=== PATIENT | male | born 1965 | race Hispanic/Latino ===

== ENCOUNTER 2019-12-26 00:36 | Emergency (ER) | payer SELFPAY ==
[~2019-12-26 00:36] MED LIST: METFOR; SULF1TAB42 PO
[2019-12-26] MEDS ORDERED: MECLIZINE HCL 25 MG TABLET ONE (01:16)
[2019-12-26] MEDS ORDERED: FUROSEMIDE 10 MG/ML 4ML VIAL ONE (01:17)
[2019-12-26 01:21] LABS: BASOPHILS % (AUTO) 0.8 % (0.0-5.0); EOSINOPHILS % (AUTO) 3.6 % (0.0-8.0); HEMATOCRIT 39.6 % (42-54); LYMPHOCYTES % (AUTO) 12.6 % (21.0-51.0); MEAN CORPUSCULAR HEMOGLOBIN 30.5 pg (27.0-33.0); MEAN CORPUSCULAR HGB CONC 33.6 g/dL (32.0-36.0); MEAN CORPUSCULAR VOLUME 90.8 fL (79-99); MONOCYTES % (AUTO) 4.9 % (3.0-13.0); NEUTROPHILS % (AUTO) 77.8 % (40.0-77.0); PLATELET COUNT (AUTO) 218 K/uL (130-400); RED BLOOD CELL COUNT(AUTO) 4.36 MIL/uL (4.50-6.20); RED CELL DISTRIBUTION WIDTH 12.5 % (11.0-15.5); WHITE BLOOD COUNT (AUTO) 11.5 K/uL (4.8-10.8)
[2019-12-26 01:30] LABS: CREATININE 1.9 mg/dL (0.5-1.5); POTASSIUM 4.8 mmol/L (3.5-5.1)
[2019-12-26 01:34] LABS: ALBUMIN 3.6 g/dL (3.5-5.0); TOTAL PROTEIN, SERUM 7.3 g/dL (6.0-8.3)
[2019-12-26 01:37] LABS: INR 0.97 (0.85-1.15); PARTIAL THROMBOPLASTIN TIME 25.2 SEC (26.3-35.5); PROTHROMBIN TIME 10.5 SEC (9.6-11.6)
[2019-12-26 01:44] LABS: B-TYPE NATRIURETIC PEPTIDE 1660 pg/mL (0-100)
[2019-12-26 02:21] LABS: APPEARANCE,URINE Clear (CLEAR); BILIRUBIN,URINE Negative (NEGATIVE); COLOR,URINE Yellow (YELLOW); GLUCOSE, URINE (UA) 500 mg/dL (NEGATIVE); KETONES,URINE Negative (NEGATIVE); LEUKOCYTE ESTERASE ,URINE Negative (NEGATIVE); NITRATE,URINE Negative (NEGATIVE); OCCULT BLOOD,URINE Small (NEGATIVE); PROTEIN,URINE POS 2+ mg/dL (NEGATIVE)
[2019-12-26 02:29] LABS: BACTERIA,URINE None Seen /HPF (None Seen); RBC,URINE 0-1 /HPF (0-1); WBC,URINE None Seen /HPF (0-1)
== END 2019-12-26 03:43 | disposition home or self-care (01) ==
LOC: EDH 00:36
DX: H81.10 Benign paroxysmal vertigo, unspecified ear (principal); N28.9 Disorder of kidney and ureter, unspecified; R60.0 Localized edema; R80.9 Proteinuria, unspecified; I10 Essential (primary) hypertension; E11.9 Type 2 diabetes mellitus without complications
CPT/HCPCS: 36415; 71045; 80053; 81001; 82550; 83880; 84484; 85025; 85610; 85730; 93005; 96374; 99285; J1940

== ENCOUNTER → 2023-11-25 | Outpatient (CLI) | payer BC ==
[2023-11-25 16:40] LABS: CREATININE 4.4 mg/dL (0.5-1.3); POTASSIUM 4.2 mmol/L (3.5-5.1)
[2023-11-25 16:44] LABS: HEMOGLOBIN A1C 7.7 % (4.0-6.0)
== END | disposition home or self-care (01) ==
LOC: LAB 14:16
PROVIDERS: ATTEND Student in an Organized Health Care Education/Training Program
DX: E11.65 Type 2 diabetes mellitus with hyperglycemia (principal); E78.5 Hyperlipidemia, unspecified; I10 Essential (primary) hypertension
CPT/HCPCS: 36415; 80048; 83036

== ENCOUNTER 2024-03-15 06:41 | Day surgery (SDC) | payer BC ==
[2024-03-09 12:02] VITALS: BP 135/85; PULSE 77; RESP 16; TEMP 97.1
[2024-03-15] VITALS (16 sets, daily range): BP systolic 130–151; BP diastolic 92–108; PULSE 75–91; RESP 14–22; TEMP 97.6–98.1
[~2024-03-15] VITALS: Ht 170.2 cm; Wt 78.0 kg
[~2024-03-15 06:41] MED LIST changes: +AEC81 PO; +APIX2.5T PO; +CARV25TA PO; +CEPH500C2 PO; +DAPA10TA PO; +FERR-82 PO; +FURO40TA5 PO; +HYDR25TA67 PO; +INSU300I SQ; +ISOS30TA92 PO; -METFOR; +POTA-200 PO; +ROSU10TA72 PO; -SULF1TAB42 PO; +TAMS-1 PO; +ceFAZolin SODIUM 2 GM VIAL IVPB PRN
[2024-03-15] MEDS ORDERED: HEParin-NS 1,000 UNIT/500 ML 500 ML IV ONE (07:15)
[2024-03-15 07:25] LABS: CREATININE 4.7 mg/dL (0.5-1.3)
[2024-03-15] MEDS: ceFAZolin SODIUM 2 GM VIAL IVPB PRN (08:57)
[2024-03-15] MEDS: 0.9%NACL 1000ML 1,000 ML IV SCH (08:57)
[2024-03-15] MEDS: ceFAZolin SODIUM 2 GM VIAL ONE (08:57)
[2024-03-15] MEDS: 0.9% NACL 500ML IV.SOLN 500 ML IV ONE (09:00)
[2024-03-15] MEDS ORDERED: dexaMETHasone SOD PHOSPHATE 4 MG/ML 1ML VIAL ONE (09:17)
[2024-03-15] MEDS ORDERED: LIDOCAINE PF 100MG/5ML (2%) SYRINGE 5ML ONE (09:17)
[2024-03-15] MEDS ORDERED: MIDAZOLAM HCL 1 MG/ML 2ML VIAL ONE (09:23)
[2024-03-15] MEDS ORDERED: rocuRONium bROMide 10MG/1ML 5ML VL ONE (09:23)
[2024-03-15] MEDS ORDERED: proPOFol 10 MG/ML 20ML VIAL IV ONE (09:23)
[2024-03-15] MEDS ORDERED: ondanSETRON 4MG INJ ONE (09:23)
[2024-03-15] MEDS ORDERED: FENTanyl CITRate PF 50 MCG/1 ML 2ML VIAL ONE (09:24)
[2024-03-15] MEDS ORDERED: phenylEPHRINE HCL 10 MG/ML 1ML VIAL IV ONE (12:57)
[2024-03-15] MEDS ORDERED: ePHEDrine SULFate 50 MG/ML AMPULE ONE (13:02)
[2024-03-15] MEDS ORDERED: GLYCOPYRROLATE 0.2 MG/ML 5 ML VIAL ONE (13:04)
[2024-03-15] MEDS ORDERED: NEOSTIGMINE METHYLSULFATE 1MG/ML IV ONE (13:04)
== END 2024-03-15 15:15 | disposition home or self-care (01) ==
LOC: DAH 06:41
PROVIDERS: ATTEND Student in an Organized Health Care Education/Training Program
DX: I13.0 Hypertensive heart and chronic kidney disease with heart failure and stage 1 through stage 4 chronic kidney disease, or unspecified chronic kidney disease (principal); K40.20 Bilateral inguinal hernia, without obstruction or gangrene, not specified as recurrent; E11.22 Type 2 diabetes mellitus with diabetic chronic kidney disease; I50.9 Heart failure, unspecified; N18.6 End stage renal disease; I25.10 Atherosclerotic heart disease of native coronary artery without angina pectoris; E66.9 Obesity, unspecified; K21.9 Gastro-esophageal reflux disease without esophagitis; Z95.0 Presence of cardiac pacemaker; Z89.411 Acquired absence of right great toe; Z79.01 Long term (current) use of anticoagulants; Z79.82 Long term (current) use of aspirin; Z79.899 Other long term (current) drug therapy
CPT/HCPCS: 86850 ×2; 86900 ×2; 86901 ×2; 36415 ×2; 36821; 80048; 82948 ×2; A6260; J1100; A4663; J7040; J3010; J3490 ×3; J2001; J2250; J2704; J2405; J2710; J1644; J2371; J0690; A4649 ×3; C1713 ×2; A4215; A4213; A4222; A4221; A4216; A4223 ×2

== ENCOUNTER → 2024-04-17 | Outpatient (CLI) | payer BC ==
[~2024-04-17] MED LIST changes: -CEPH500C2 PO; -ceFAZolin SODIUM 2 GM VIAL IVPB PRN
[2024-04-17 17:03] LABS: ALANINE AMINOTRANSFERASE 17 U/L (12-78); ALBUMIN 3.4 g/dL (3.5-5.0); ASPARTATE AMINOTRANSFERASE 23 U/L (10-37); BILIRUBIN,TOTAL 1.3 mg/dL (0.2-1.0); CARBON DIOXIDE 34 mmol/L (21-32); CHLORIDE 97 mmol/L (101-111); CHOLESTEROL 125 mg/dL (<200); CREATININE 2.4 mg/dL (0.5-1.3); GLOMERULAR FILTR. RATE CALC 31 mL/min (>90); GLUCOSE,RANDOM 83 mg/dL (70-105); HDL CHOLESTEROL 66 mg/dL (29-71); LDL DIRECT 54 mg/dL (0-99); POTASSIUM 3.6 mmol/L (3.5-5.1); SODIUM SERUM 137 mmol/L (136-145); TRIGLYCERIDES 28 mg/dL (30-200); UREA NITROGEN, BLOOD 29 mg/dL (7-18)
[2024-04-17 17:07] LABS: HEMOGLOBIN A1C 9.3 % (4.0-6.0)
== END | disposition home or self-care (01) ==
LOC: LAB 13:13
PROVIDERS: ATTEND Student in an Organized Health Care Education/Training Program
DX: E11.65 Type 2 diabetes mellitus with hyperglycemia (principal); I50.20 Unspecified systolic (congestive) heart failure
CPT/HCPCS: 36415; 80053; 80061; 83036; 83880

== ENCOUNTER → 2024-05-22 | Outpatient (CLI) | payer BC ==
[2024-05-22 16:52] LABS: ALBUMIN 3.8 g/dL (3.5-5.0); BILIRUBIN,TOTAL 1.3 mg/dL (0.2-1.0); TOTAL PROTEIN, SERUM 8.3 g/dL (6.0-8.3)
== END | disposition home or self-care (01) ==
LOC: LAB 13:22
PROVIDERS: ATTEND Student in an Organized Health Care Education/Training Program
DX: Z01.812 Encounter for preprocedural laboratory examination (principal); I50.20 Unspecified systolic (congestive) heart failure
CPT/HCPCS: 36415; 80053

== ENCOUNTER → 2024-05-30 | Outpatient (CLI) | payer BC ==
[~2024-05-30] MED LIST changes: +ERGO400C PO; -FERR-82 PO; +FOLI1TAB85 PO; -FURO40TA5 PO; -HYDR25TA67 PO; +IOHEXOL 350 MG/ML 100ML INFUS..BTL IV ONE; -ISOS30TA92 PO; -POTA-200 PO; +SACU1TAB PO; -TAMS-1 PO; +metoPROLOL tartRATE 1 MG/ML 5ML VIAL IV ONE
--- NOTE | 2024-05-30 09:37 | HMCIMG ---
CT CARDIAC ANGIO W/CONT. CCTA REASON: HEART FAILURE COMPARISON: None TECHNIQUE: Images are obtained through the heart in the axial plane before and during bolus IV contrast infusion, 100 cc Omnipaque 350. 2-D and 3-D multiplanar reconstruction images were then performed. The injection had to be repeated once due to motion artifact on the first sequence, total contrast volume was 200 cc. FINDINGS: This dictation is for the noncardiac findings only. Cardiac and coronary artery findings are reported separately. Visualized portions of the lungs are clear. There is normal-appearing pulmonary interstitium. There is no hilar or mediastinal lymphadenopathy. Chest wall structures appear unremarkable. IMPRESSION: 1. Unremarkable noncardiac portions of CT cardiac angiography.
== END | disposition home or self-care (01) ==
LOC: RAH 07:31
PROVIDERS: ATTEND Student in an Organized Health Care Education/Training Program
DX: I50.9 Heart failure, unspecified (principal)
CPT/HCPCS: 75574; J3490; Q9967

== ENCOUNTER → 2024-07-19 | Outpatient (CLI) | payer BC ==
[~2024-07-19] MED LIST changes: -AEC81 PO; +ASPI-1197 PO; -IOHEXOL 350 MG/ML 100ML INFUS..BTL IV ONE; -metoPROLOL tartRATE 1 MG/ML 5ML VIAL IV ONE
--- NOTE | 2024-07-26 09:59 | HMCSR ---
APPROVED REPORT EXAM: Two-dimensional and M-mode echocardiogram with Doppler and color Doppler. INDICATION ICD: I25.10 Atherosclerotic heart disease of [place] coronary artery without angina pectoris 2D Dimensions RVDd4.3 cmLVEF(%)33.3 (>50%)LVED Vol(simp.)162.0 mL IVSd1.0 (0.7-1.1cm)FS(%)16 %LVES Vol(simp.)110.0 mL LVDd6.2 (3.8-5.6cm)Ao Root(2D)3.3 (2.0-3.7cm)LVEF(%, simp.)32 % PWd1.2 (0.7-1.1cm)LVOT diam2.4 (1.8-2.4cm)LA ESV INDEX (BP)46.98 mL/m2 LVDs5.2 (2.5-4.0cm)IVC diam1.9 cm Aortic Valve AoV Vmax1.3 m/[place] GR6.6 mmHgLVOT Vmax0.7 m/s AoV VTI0.3 mAo Mean GR3.8 mmHgLVOT VTI0.15 m AIRAM (VMAX)2.5 cm2AVA (VTI) 2.5 cm2 Mitral Valve MV E Vmax37.5 cm/s MV A Vmax93.0 cm/s E/A ratio0.4 MR Max PG69 mmHg Pulmonary Valve PV Vmax0.9 m/sPV VTI0.16 m Tricuspid Valve TR Vmax3.0 m/sRAP (EST) 8 koJaRCNC84.6 mmHg TR Peak GR35.6 mmHg Left Ventricle The left ventricle is dilated. There is global hypokinesis of the left ventricle. There is mild cesar ntric left ventricular hypertrophy. LVEF is 30-35%. E/A flow is fused. Right Ventricle The right ventricle is normal in size. Right ventricular systolic function is reduced. Atria The left atrium is moderately dilated. The right atrium is mildly dilated. Aortic Valve Aortic valve is trileaflet. Aortic valve leaflets are sclerotic but open well. Trace aortic regurgita tion. There is no aortic valvular stenosis. Mitral Valve Mitral valve leaflets are mildly sclerotic but open well. Mitral regurgitation is mild. There is no m itral valve stenosis. Tricuspid Valve The tricuspid valve leaflets appear normal. There is mild tricuspid regurgitation. Right ventricular systolic pressure is estimated at 40-50 mmHg. Pulmonic Valve The pulmonic valve leaflets are thin and pliable; valve motion is normal. There is mild to moderate v alvular regurgitation. Great Vessels The aortic root is normal in size. IVC is dilated and collapses >50% with inspiration. Pericardium No pericardial effusion. Other Information Quality : Average Conclusion The left ventricle is dilated. LVEF is 30-35% with global hypokinesis of the left ventricle. There is mild concentric left ventricular hypertrophy. E/A flow is fused. Right ventricular systolic function is reduced by TAPSE. The left atrium is moderately dilated. Milt mitral and tricuspid regurgitation. Mild- moderate pulmonic regurgitation. IVC is dilated and collapses >50% with inspiration. No pericardial effusion.
== END | disposition home or self-care (01) ==
LOC: SHCH 14:29
PROVIDERS: ATTEND Student in an Organized Health Care Education/Training Program
DX: I25.10 Atherosclerotic heart disease of native coronary artery without angina pectoris (principal)
CPT/HCPCS: 93306